=== PATIENT | female | born 1965 | race Caucasian/White ===

== ENCOUNTER 2022-07-03 08:59 | Day surgery (SDC) | payer MEDICAID, OTHER ==
[~2022-07-03] VITALS: Ht 160 cm; Wt 70.0 kg
[~2022-07-03 08:59] MED LIST: BUPR-72 PO; FOLI-130 PO; HUM10VIA SQ; SODIUM CHLORIDE 0.9% 1,000 ML ONE; SULF500T60 PO
[2022-07-03] MEDS ORDERED: PROPOFOL 1% 20 ML VIAL IVP ONE (09:00)
[2022-07-03] MEDS ORDERED: LIDOCAINE/PF 2% 5 ML SYRINGE IVP ONE (09:00)
[2022-07-03] MEDS ORDERED: PHENYLEPHRINE HCL 10 MG/ML VIAL IVP ONE (09:00)
[2022-07-03 09:46] LABS: GLUCOMETER DEV NAME(LOC) SDS.; GLUCOSE,POINT OF CARE 142 MG/DL (70-110)
[2022-07-03] MEDS ORDERED: SODIUM CHLORIDE 0.9% 1,000 ML IV ONE (11:00)
== END 2022-07-03 12:10 | disposition home or self-care (01) ==
LOC: SURGERY 08:59
PROVIDERS: ATTEND Internal Medicine Gastroenterology
DX: K51.90 Ulcerative colitis, unspecified, without complications (principal); K64.9 Unspecified hemorrhoids; K63.5 Polyp of colon; Z88.0 Allergy status to penicillin; I10 Essential (primary) hypertension; E11.9 Type 2 diabetes mellitus without complications; Z79.899 Other long term (current) drug therapy
CPT/HCPCS: 45385; 45380; 88305; 82962; C1769; J2704; J2370; J3490; J7030